=== PATIENT | male | born 1930 | race Caucasian/White ===

== ENCOUNTER 2017-07-01 18:12 | Observation (INO) ==
--- NOTE | 2017-07-01 18:17 | Emergency Department Note ---
Disposition Clinical Impression: Altered mental status Qualifiers: Altered mental status type: disorientation Qualified Code(s): R41.0 - Disorientation, unspecified Disposition: Admitted As Inpatient Condition: Fair General Adult HPI - General Chief complaint: ED General Medical Stated complaint: NH Placement Time Seen by Provider: 07/01/17 18:14 Source: patient, family Mode of arrival: private vehicle Limitations: age Nursing Notes Reviewed: Yes Vital Signs Reviewed: Yes - History of Present Illness HPI Narrative: The patient is brought in by his and 2 daughters. His states that she is fatigued from trying to take care of him and she is "at my wit's end" and "overwhelmed". She relates that she has been having difficulty controlling his blood sugars and that she will check his blood sugar 4 times a day and will run usually from about 40-230. A week ago he had episode where he had fallen out of bed and was sweaty and shaky and she was able to give oral glucose. When the squad got there he was doing better and he was not transported. They felt he has had a diabetic hypoglycemic seizure. Over the last 2-3 weeks his memory has been progressively worse. They state that he is unable to care for himself. He is not able to repair or the eat his food regularly, dress or shower for himself. He has had decreased oral intake with more trouble with his diabetic management. They note his memory is getting much worse or last 2- 3 weeks, although he has had difficulty for some time. He has had a couple falls without injury. He is on Plavix but no other anticoagulant. He has seen his family doctor for frequent urination and prostate trouble but is not having burning or flank pain. He has not been having chest pain, shortness of breath or cough. He has not had nausea or vomiting but has had intermittent diarrhea over the course of 2 months. He has been evaluated for that by his family doctor and ultimately placed on Imodium. He has not had diarrhea in 2-3 days. His daughters convened from [place] in [place] today to assist her mother and getting him placed into a prison. They did see the family doctor, Dr. Douglas Lancaster at 2:00 this afternoon, and were advised they should bring him to the emergency department for further evaluation. They went above evidenced by they waited for the second sister to arrive and have then come to the emergency department. Onset (ago): month(s) Associated symptoms: Reports: confusion, loss of appetite, weakness. Denies: chest pain, cough, diaphoresis, fever/chills, headaches, malaise, nausea/ vomiting, rash, seizure, shortness of breath, syncope - Related Data Home Medications Medication Instructions Recorded Confirmed B2/Vits A,C,E/Lut/Zeaxanth/Min 1 each PO DAILY 10/19/16 07/01/17 [Icaps Tablet] Calcium Carb/Vitamin D3/Vit K1 1 each PO DAILY 10/19/16 07/01/17 [Calcium + D Soft Chewable Tab] Clopidogrel [Plavix] 75 mg PO DAILY 10/19/16 07/01/17 Insulin Glargine [Lantus] 10 unit SQ HS 10/19/16 07/01/17 Insulin LISPRO [HumaLOG] 5 units SQ TIDWM 10/19/16 07/01/17 Levothyroxine [Synthroid] 125 mcg PO 0630 10/19/16 07/01/17 Losartan Potassium [Cozaar] 100 mg PO DAILY 10/19/16 07/01/17 Pravastatin Sodium 10 mg PO DAILY 10/19/16 07/01/17 Vitamin B Complex [B Complex] 1 each PO DAILY 10/19/16 07/01/17 Allergies Allergy/AdvReac Type Severity Reaction Status Date / Time No Known Allergies Allergy Verified 10/19/16 09:53 All systems ED: reviewed and negative except as stated. Past Medical History - Past Medical History Attestation: Yes The following information was validated with the patient. Source: patient, old records reviewed, obtained from family, nursing notes reviewed Medical history: Reports: diabetes, hyperlipidemia, hypertension, peripheral artery disease, renal disease, thyroid disease, other (Benign prostatic hypertrophy) Psychiatric history: Reports: no psych history - Social History Smoking Status: Never smoker Smokeless Tobacco Status: No Alcohol use: Reports: none Drug use: Reports: none Physical Exam - General Limitations: no limitations, age General appearance: alert, in no apparent distress - Head Head exam: atraumatic, normocephalic, normal inspection - Eye Eye exam: Present: normal appearance, PERRL, EOMI. Absent: scleral icterus, conjunctival injection - ENT ENT exam: normal exam, normal oropharynx, mucous membranes moist - Neck Neck exam: Present: normal inspection, full ROM, trachea midline. Absent: lymphadenopathy - Chest Chest inspection: Present: normal inspection, symmetric chest wall rise - Respiratory Respiratory exam: Present: normal lung sounds bilaterally. Absent: respiratory distress, wheezes, prolonged expiratory phase - Cardiovascular Cardiovascular exam: Present: regular rate, normal rhythm, normal heart sounds. Absent: tachycardia - Abdominal Exam Abdominal exam: Present: soft, Non-Tender, normal bowel sounds. Absent: tenderness, distention, guarding, rebound, rigidity, Diaz's sign, tenderness at McBurney's Point, pulsatile mass - Extremities Exam Extremities exam: Present: normal inspection, full ROM, normal capillary refill , pedal edema (Bilateral 1-2+ pretibial edema.). Absent: tenderness, calf tenderness - Expanded Lower Extremity Exam Neurovascular/Tendon exam: Present: normal capillary refill. Absent: motor deficit, sensory deficit, tendon deficit Gait: observed and normal (Assisted to her and from the bathroom by his , ambulatory) - Back Exam Back exam: Present: normal inspection, full ROM. Absent: tenderness, vertebral tenderness - Neurological Exam Neurological exam: Present: alert, normal gait. Absent: motor sensory deficit - Psychiatric Psychiatric exam: Present: normal mood, flat affect - Skin Skin exam: Present: warm, dry, intact, normal color. Absent: diaphoresis, pallor Course Course Narrative: 1839: Care was discussed at some length with the patient's and daughters. Given the falls think is reasonable to obtain a CT as well as EKG and lab panel to evaluate for metabolic, hematologic or cardiac problems for his weakness and memory changes. Advised we would have to wait on these results before we can talk to the hospitalist about potential observation. They understand that social insurance adviser will not be around until the morning. 1939: All labs, EKG and imaging him and discussed with the family and with Dr. Morales. Dr. Morales is agreeable with having the patient observed overnight for altered mental status with social service consult in the morning. Verbal orders have been obtained for this patient's observation. Vital Signs Temperature 98.0 F 07/01/17 18:14 Pulse Rate 73 07/01/17 18:14 Respiratory Rate 18 07/01/17 18:14 Blood Pressure 179/79 07/01/17 18:14 O2 Sat by Pulse Oximetry 99 07/01/17 18:14 Temperature 98.0 F 07/01/17 18:14 Pulse Rate 73 07/01/17 18:14 Respiratory Rate 18 07/01/17 18:14 Blood Pressure 179/79 07/01/17 18:14 O2 Sat by Pulse Oximetry 99 07/01/17 18:14 Oxygen Delivery Oxygen Delivery Room Air Medical Decision Making - Medical Records Medical records reviewed: Yes I reviewed the patient's medical records. - Lab Data Lab results reviewed: Yes I reviewed the patient's lab results. Result diagrams: 07/01/17 18:53 07/01/17 18:53 Lab Results 07/01/17 07/01/17 07/01/17 Range/Units 18:35 18:53 18:53 WBC 3.4 L (4.3-11.1) K/mcL RBC 3.14 L (4.19-5.50) M/mcL Hgb 9.5 L (12.9-16.9) g/dL Hct 27.4 L (37.5-50.1) % MCV 87.3 (83.0-100.0) fL MCH 30.3 (28.0-33.3) pg MCHC 34.7 (31.6-35.5) g/dL RDW 14.1 (11.5-14.5) % Plt Count 254 (140-400) K/mcL MPV 11.1 (9.4-12.4) fL Immature Gran % 0.3 (0-4) % Seg Neutrophils % 52.6 % Lymphocytes % 34.8 % Monocytes % 9.9 % Eosinophils % 1.5 % Basophils % 0.9 % Neutrophils # 1.8 (1.6-8.9) K/mcL Lymphocytes # 1.2 (0.6-4.6) K/mcL Monocytes # 0.3 (0.0-1.3) K/mcL Eosinophils # 0.1 (0.0-0.6) K/mcL Basophils # 0.0 (0.0-0.2) K/mcL Sodium 135 L (136-145) mEq/L Potassium 4.4 (3.5-4.5) mEq/L Chloride 104 (98-109) mEq/L Carbon Dioxide 24 (19-29) mEq/L BUN 26 (8-26) mg/dL Creatinine 1.40 H (0.72-1.25) mg/dL Est GFR ( Amer) 58 L (> 60) Est GFR (Non-Af Amer) 48 L (> 60) BUN/Creatinine Ratio 19 (6-26) Glucose 226 H (70-99) mg/dL Calculated Osmolality 292 (280-300) Calcium 8.7 (8.6-10.8) mg/dL Total Bilirubin 0.4 (0.2-1.2) mg/dL Direct Bilirubin 0.2 (0.0-0.5) mg/dL Indirect Bilirubin 0.2 (0.0-1.2) mg/dL AST 17 (5-34) Units/L ALT 16 (0-55) Units/L Alkaline Phosphatase 105 (38-126) Units/L Troponin I (0-0.03) ng/mL Serum Total Protein 6.1 (6.0-8.3) g/dL Albumin 3.1 L (3.5-5.0) g/dL Globulin 3.0 (2.4-3.5) g/dL Albumin/Globulin Ratio 1.0 L (1.1-2.2) Urine Color Yellow (Yellow) Urine Clarity Clear (Clear) Urine pH 5.5 (5.0-8.0) pH Units Ur Specific [place] 1.015 (1.010-1.025) Urine Protein 100 H (Neg-Trace) mg/dL Urine Glucose (UA) Normal (Normal) mg/dL Urine Ketones Negative (Negative) mg/dL Urine Blood Negative (Negative) Urine Nitrite Negative (Negative) Urine Bilirubin Negative (Negative) Urine Urobilinogen Normal (Normal) mg/dL Ur Leukocyte Esterase Negative (Negative) Urine Bacteria Few (None-Few) per hpf Hyaline Casts Few (None-Few) per lpf Urine Mucus Few (Few) Ur Culture Indicated? NO (NO) 07/01/17 Range/Units 18:53 WBC (4.3-11.1) K/mcL RBC (4.19-5.50) M/mcL Hgb (12.9-16.9) g/dL Hct (37.5-50.1) % MCV (83.0-100.0) fL MCH (28.0-33.3) pg MCHC (31.6-35.5) g/dL RDW (11.5-14.5) % Plt Count (140-400) K/mcL MPV (9.4-12.4) fL Immature Gran % (0-4) % Seg Neutrophils % % Lymphocytes % % Monocytes % % Eosinophils % % Basophils % % Neutrophils # (1.6-8.9) K/mcL Lymphocytes # (0.6-4.6) K/mcL Monocytes # (0.0-1.3) K/mcL Eosinophils # (0.0-0.6) K/mcL Basophils # (0.0-0.2) K/mcL Sodium (136-145) mEq/L Potassium (3.5-4.5) mEq/L Chloride (98-109) mEq/L Carbon Dioxide (19-29) mEq/L BUN (8-26) mg/dL Creatinine (0.72-1.25) mg/dL Est GFR ( Amer) (> 60) Est GFR (Non-Af Amer) (> 60) BUN/Creatinine Ratio (6-26) Glucose (70-99) mg/dL Calculated Osmolality (280-300) Calcium (8.6-10.8) mg/dL Total Bilirubin (0.2-1.2) mg/dL Direct Bilirubin (0.0-0.5) mg/dL Indirect Bilirubin (0.0-1.2) mg/dL AST (5-34) Units/L ALT (0-55) Units/L Alkaline Phosphatase (38-126) Units/L Troponin I 0.00 (0-0.03) ng/mL Serum Total Protein (6.0-8.3) g/dL Albumin (3.5-5.0) g/dL Globulin (2.4-3.5) g/dL Albumin/Globulin Ratio (1.1-2.2) Urine Color (Yellow) Urine Clarity (Clear) Urine pH (5.0-8.0) pH Units Ur Specific [place] (1.010-1.025) Urine Protein (Neg-Trace) mg/dL Urine Glucose (UA) (Normal) mg/dL Urine Ketones (Negative) mg/dL Urine Blood (Negative) Urine Nitrite (Negative) Urine Bilirubin (Negative) Urine Urobilinogen (Normal) mg/dL Ur Leukocyte Esterase (Negative) Urine Bacteria (None-Few) per hpf Hyaline Casts (None-Few) per lpf Urine Mucus (Few) Ur Culture Indicated? (NO) - Radiology Data Radiology results reviewed: Yes I reviewed the patient's radiology results. Single view chest x-ray is performed. This does not demonstrate evidence for infiltrate, effusion, pneumothorax, foreign body or heart failure. Patient has some chronic appearing scarring in the lungs. The cardiac silhouette is mildly enlarged. I do not see abnormality to the osseous structures of the chest. This is on my interpretation. CT head is performed. This is reviewed on bone and soft tissue windows. There is no evidence for acute intracranial bleed, shift, mass or edema. Patient has age-appropriate cerebral atrophy. Mastoids and sinuses appear normal. There is no fracture evident. This is on my interpretation. Impressions Chest X-Ray 07/01/17 18:29 IMPRESSION: Mild blunting of the right costophrenic angle likely by trace pleural fluid. Lungs are otherwise clear. Borderline heart size. D/ / Ming Ramirez MD / Ming Ramirez MD Interpreting Provider: Ming Ramirez MD Head CT 07/01/17 18:44 IMPRESSION: No acute intracranial abnormality. Age-appropriate generalized atrophy. Mild chronic small vessel ischemic white matter disease. D/ / Ming Ramirez MD / Ming Ramirez MD Interpreting Provider: Ming Ramirez MD - EKG Data EKG #1 EKG attestation: Yes I reviewed and interpreted this EKG. EKG shows normal: sinus rhythm, intervals, QRS complexes, ST-T waves Rate: bradycardia (58) [place]/QRS: left axis deviation Interpretation: no acute changes, nonspecific ST-T wave changes
[2017-07-01 18:42] LABS: Bilirubin,Urine Negative (Negative); Blood,Urine Negative (Negative); Clarity,Urine Clear (Clear); Color,Urine Yellow (Yellow); Glucose,Urine (UA) Normal (Normal); Ketones,Urine Negative (Negative); Leukocyte Esterase,Urine Negative (Negative); Nitrite,Urine Negative (Negative); PH,Urine 5.5 pH Units (5.0-8.0); Protein,Urine 100 mg/dL (Neg-Trace); Specific Gravity,Urine 1.015 (1.010-1.025); Urobilinogen,Urine Normal (Normal)
[2017-07-01 18:46] LABS: Bacteria,Urine Few per hpf (None-Few); Hyaline Casts,Urine Few per lpf (None-Few); Mucus,Urine Few (Few)
[2017-07-01 18:59] LABS: Basophils % 0.9 %; Eosinophils # 0.1 K/mcL (0.0-0.6); Eosinophils % 1.5 %; Hematocrit 27.4 % (37.5-50.1); Hemoglobin 9.5 g/dL (12.9-16.9); Immature Granulocytes % 0.3 % (0-4); Lymphocytes # 1.2 K/mcL (0.6-4.6); Lymphocytes % 34.8 %; Mean Corpuscular HGB Conc 34.7 g/dL (31.6-35.5); Mean Corpuscular Hemoglobin 30.3 pg (28.0-33.3); Mean Corpuscular Volume 87.3 fL (83.0-100.0); Mean Platelet Volume 11.1 fL (9.4-12.4); Monocytes # 0.3 K/mcL (0.0-1.3); Monocytes % 9.9 %; Neutrophils # 1.8 K/mcL (1.6-8.9); Platelet Count 254 K/mcL (140-400); Red Blood Count 3.14 M/mcL (4.19-5.50); Red Cell Distribution Width 14.1 % (11.5-14.5); Segmented Neutrophils % 52.6 %
[2017-07-01 19:17] LABS: Albumin 3.1 g/dL (3.5-5.0); Bilirubin,Direct 0.2 mg/dL (0.0-0.5); Bilirubin,Indirect 0.2 mg/dL (0.0-1.2); Bilirubin,Total 0.4 mg/dL (0.2-1.2); Calcium 8.7 mg/dL (8.6-10.8); Potassium 4.4 mEq/L (3.5-4.5); Total Protein 6.1 g/dL (6.0-8.3)
[2017-07-01] MEDS ORDERED: Dextrose Gel 15 GM PO PRN ×2 (20:55)
[2017-07-01] MEDS ORDERED: Ondansetron 4 MG/2 ML VIAL IVP PRN (20:55)
[2017-07-01] MEDS ORDERED: Naloxone 0.4 MG/ML INJ IVP PRN (20:55)
[2017-07-01] MEDS ORDERED: *HR* Dextrose 50 % in Water (Syg) 50 ML SYRINGE IVP PRN (20:55)
[2017-07-01] MEDS ORDERED: D5% in Water 1,000 ML IVC PRN (20:55)
[2017-07-01] MEDS ORDERED: MOM Conc 10 ML UD.LIQ PO PRN (20:55)
[2017-07-01] MEDS ORDERED: NON-FORMULARY MEDICATION 1 EACH EACH (Insulin Glargine [Lantus] 10 UNIT) SQ SCH (21:00)
[2017-07-01] MEDS ORDERED: Insulin DETEMIR 100 UNIT/ML per UNIT SQ ONE (21:45)
[2017-07-02] MEDS: Insulin LISPRO 300 UNITS/3 ML VIAL SQ SCH ×4 (08:25→12:42)
[2017-07-02 10:36] VITALS: BP 170/73
--- NOTE | 2017-07-02 12:11 | Internal Med History&Physical ---
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 He is appropriate [facility]. I will order B12 level for additional evaluation. (2) CKD (chronic kidney disease) stage 3, GFR 30-59 ml/min Current visit: Yes Status: Chronic Will hold Cozaar and monitor renal indices periodically. (3) Anemia Current visit: Yes Status: Acute Will order anemia testing. Suspect due at least in part to chronic kidney disease. Qualifiers: Anemia type: unspecified type Qualified Code(s): D64.9 - Anemia, unspecified (4) Hypothyroidism Current visit: Yes Status: Chronic We will check TSH. Continue Synthroid at present dose for now. Qualifiers: Hypothyroidism type: unspecified Qualified Code(s): E03.9 - Hypothyroidism , unspecified (5) Hyperlipidemia Current visit: Yes Status: Acute Observe Qualifiers: Hyperlipidemia type: unspecified Qualified Code(s): E78.5 - Hyperlipidemia , unspecified (6) BPH (benign prostatic hyperplasia) Current visit: Yes Status: Chronic Discontinue Flomax and changed to Cardura to assist in blood pressure control. Will add Proscar since he has multiple episodes of nocturia. Qualifiers: Lower urinary tract symptom presence: symptoms present Lower urinary tract symptom detail: urinary frequency Qualified Code(s): N40.1 - Benign prostatic hyperplasia with lower urinary tract symptoms; R35.0 - Frequency of micturition ; R35.0 - Frequency of micturition (7) DM type 2 (diabetes mellitus, type 2) Current visit: Yes Status: Chronic We will hold insulin since he is having hypoglycemia frequently at home. We will do Accu-Cheks with SSI. Qualifiers: Diabetes mellitus complication status: with kidney complications Diabetes mellitus complication detail: with chronic kidney disease Diabetes mellitus plate glass polisher insulin use: with plate glass polisher use Chronic kidney disease stage: stage 3 (moderate) Qualified Code(s): E11.22 - Type 2 diabetes mellitus with diabetic chronic kidney disease; N18.3 - Chronic kidney disease, stage 3 ( moderate); N18.3 - Chronic kidney disease, stage 3 (moderate); Z79.4 - shelter (current) use of insulin; Z79.4 - piece dyer (current) use of insulin; Z79.4 - piece dyer (current) use of insulin; Z79.4 - piece dyer (current) use of insulin (8) Hypertension Current visit: Yes Status: Chronic We will withhold Cozaar and see if azotemia improves. We will give Cardura for blood pressure and BPH symptoms Qualifiers: Hypertension type: essential hypertension Qualified Code(s): I10 - Essential (primary) hypertension Internal Medicine - H&P: HPI Chief complaint: Confusion and weakness Admitted From: Home Plans for Post Hospital Care: Transfer Supervisory Lifeguard Care History of present illness: Mr. Rogel is a 87 year old male who came to emergency room after he became more confused and progressively weaker over the past 1-2 weeks. His states she is unable to care for him at home. He was evaluated in emergency room and admitted to observation bed until further disposition could be arranged. He has never received a formal diagnosis of dementia but family reports his memory has been decreasing for approximately 2 years. He had a seizure approximately one week ago felt to be due to hypoglycemia. He had not had previous seizures. He has not had large distribution strokes or other neurologic problems. Past Med Surg Social Fam HX - Past Medical History Medical history: diabetes, hyperlipidemia, hypertension, peripheral artery disease, renal disease, thyroid disease, other Psychiatric history: no psych history - Social History Smoking Status: Never smoker Smokeless Tobacco Status: No Alcohol use: none Drug use: none Internal Medicine - H&P: Meds B2/Vits A,C,E/Lut/Zeaxanth/Min [Icaps Tablet] 1 each PO DAILY 10/19/16 [History] Calcium Carb/Vitamin D3/Vit K1 [Calcium + D Soft Chewable Tab] 1 each PO DAILY 10/19/16 [History] Clopidogrel [Plavix] 75 mg PO DAILY 10/19/16 [History] Insulin Glargine [Lantus] 10 unit SQ HS 10/19/16 [History] Insulin LISPRO [HumaLOG] 5 units SQ TIDWM 10/19/16 [History] Levothyroxine [Synthroid] 125 mcg PO 0630 10/19/16 [History] Losartan Potassium [Cozaar] 100 mg PO DAILY 10/19/16 [History] Pravastatin Sodium 10 mg PO DAILY 10/19/16 [History] Vitamin B Complex [B Complex] 1 each PO DAILY 10/19/16 [History] 3 Allergy/AdvReac Type Severity Reaction Status Date / Time No Known Allergies Allergy Verified 07/02/17 01:55 All Systems PM: A 10-system review of systems was performed and is negative for pertinent findings except as documented above in the HPI. Review of systems: Gen.: His weight has been stable the past few months Cardiovascular: He has history of hypertension. He has known peripheral artery disease and has had iliac stents placed bilaterally as well as a stent in his right subclavian artery. 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 He has not had DVTs CT heart failure or pulmonary embolism. Respiratory: He is a lifelong nonsmoker and has no known chronic lung disease GI: Has no known disorder of his liver gallbladder or exocrine pancreas : He has BPH with history of TUR. He has frequent nocturia. He has chronic kidney disease stage III. He does not follow with a plc programmer. Neurologic: As per history of present illness Endocrine: He was diagnosed with DM 2 in 1977. Hemoglobin A1c was 6.7% on 05/24. He has hypothyroidism and history of hyperlipidemia Hematology/oncology: He has anemia but no known internal malignancies or blood disorders Psychiatric: No history of anxiety depression or other mental health issues Musculoskeletal: He has minimal DJD. There is no history of gout or other bone joint or muscle disorders. - Constitutional Vitals: Temp Pulse Resp BP Pulse Ox 97.3 F L 61 16 170/73 95 07/02/17 10:33 07/02/17 10:33 07/02/17 10:33 07/02/17 10:33 07/02/17 10:33 Exam: Gen.: He is a well-developed well-nourished male sitting in a chair who appears in no acute distress at present time. HEENT: Head is atraumatic and normal cephalic. Eyes: EOMI. There is no scleral icterus. Mouth: Mucosa is moist. Neck: Supple and nontender. There is no thyromegaly or adenopathy noted. Heart: Irregular. I could not tell if it is regularly or irregularly irregular. No murmurs or gallops are heard. Lungs: No wheezes or crackles are heard. Abdomen: Soft and nontender. No masses or guarding are noted. Exam is limited because he is in the seated position. Extremities: He has slight dependent erythema of his lower legs. Dorsalis pedis and posterior tibial pulses are trace palpable bilaterally. There is no cyanosis or clubbing noted. Neurologic: Mental status: He is awake and able to answer a few questions but does not seem to be an insightful historian. Cranial nerves: Smile is symmetric. Forehead wrinkles bilaterally. Tongue protrudes midline. EOMI. Motor: There is no pronator drift. Cirelli: Finger to nose is intact bilaterally. Skin: Warm and dry Internal Med - H&P Results - Labs CBC & Chem 7: 07/01/17 18:53 07/01/17 18:53 - VTE Documentation of Mechanical Device: Graduated compression elastic hosiery
--- NOTE | 2017-07-02 14:56 | Discharge Summary ---
Date of Encounter: 07/02/17 Time of Encounter: 11:30 - Discharge Diagnosis (1) Confusion Priority: Primary Status: Acute (2) CKD (chronic kidney disease) stage 3, GFR 30-59 ml/min Priority: Secondary Status: Chronic (3) Anemia Priority: Secondary Status: Chronic Qualifiers: Anemia type: unspecified type Qualified Code(s): D64.9 - Anemia, unspecified (4) Hypothyroidism Priority: Secondary Status: Chronic Qualifiers: Hypothyroidism type: unspecified Qualified Code(s): E03.9 - Hypothyroidism , unspecified (5) Hyperlipidemia Priority: Secondary Status: Chronic Qualifiers: Hyperlipidemia type: unspecified Qualified Code(s): E78.5 - Hyperlipidemia , unspecified (6) BPH (benign prostatic hyperplasia) Priority: Secondary Status: Chronic Qualifiers: Lower urinary tract symptom presence: symptoms present Lower urinary tract symptom detail: urinary frequency Qualified Code(s): N40.1 - Benign prostatic hyperplasia with lower urinary tract symptoms; R35.0 - Frequency of micturition ; R35.0 - Frequency of micturition (7) DM type 2 (diabetes mellitus, type 2) Priority: Secondary Status: Chronic Qualifiers: Diabetes mellitus complication status: with kidney complications Diabetes mellitus complication detail: with chronic kidney disease Diabetes mellitus retirement insulin use: with emt intermediate use Chronic kidney disease stage: stage 3 (moderate) Qualified Code(s): E11.22 - Type 2 diabetes mellitus with diabetic chronic kidney disease; N18.3 - Chronic kidney disease, stage 3 ( moderate); N18.3 - Chronic kidney disease, stage 3 (moderate); Z79.4 - residential (current) use of insulin; Z79.4 - residential (current) use of insulin; Z79.4 - terminal manager (current) use of insulin; Z79.4 - terminal manager (current) use of insulin (8) Hypertension Priority: Secondary Status: Chronic Qualifiers: Hypertension type: essential hypertension Qualified Code(s): I10 - Essential (primary) hypertension - Discharge Medications Home Medications: B2/Vits A,C,E/Lut/Zeaxanth/Min [Icaps Tablet] 1 each PO DAILY 10/19/16 [History] Calcium Carb/Vitamin D3/Vit K1 [Calcium + D Soft Chewable Tab] 1 each PO DAILY 10/19/16 [History] Clopidogrel [Plavix] 75 mg PO DAILY 10/19/16 [History] Levothyroxine [Synthroid] 125 mcg PO 0630 10/19/16 [History] Losartan Potassium [Cozaar] 100 mg PO DAILY 10/19/16 [History] Pravastatin Sodium 10 mg PO DAILY 10/19/16 [History] Vitamin B Complex [B Complex] 1 each PO DAILY 10/19/16 [History] Doxazosin [Cardura] 2 mg PO HS tablet 07/02/17 [Rx] Finasteride [Proscar] 5 mg PO DAILY tablet 07/02/17 [Rx] Allergies/Adverse Reactions: 3 Allergy/AdvReac Type Severity Reaction Status Date / Time No Known Allergies Allergy Verified 07/02/17 01:55 Date of admission: 07/01/17 19:47 Primary care physician: Douglas Lancaster MD Consults: 07/02/17 01:24 Consult to Nutrition [CONS] Routine Comment: Consulting Provider: NUTRITION Reason for Dietary Consult: MST Score 07/02/17 10:35 Consult to Occupational Therapy [CONS] Routine Comment: Evaluate, develop and implement POC Reason for Consult: weakness Consult to Physical Therapy [CONS] Routine Comment: Evaluate, develop and implement POC Reason for Consult: weakness - Patient Status Disposition: Transfer SNF Condition: Fair Overall status at discharge: patient is progressing back to baseline - Discharge Instructions - Diet and Activity Diet: advance to your usual diet Hospital course: Mr. Rogel is a 87 year old male who came to emergency room after he became more confused and progressively weaker over the past 1-2 weeks. His states she is unable to care for him at home. He was evaluated in emergency room and admitted to observation bed until further disposition could be arranged. Initial orders were written by the emergency room physician. I saw him on July 02 and performed a history physical and discharge. Physical therapy and occupational therapy evaluations were done. Anemia testing was ordered to further evaluate his anemia. These results are pending at time of discharge. TSH was ordered with results pending at time of discharge. Cozaar will be held because of his azotemia with repeat labs done in a few days. Lantus and scheduled NovoLog will be held at discharge with Accu-Cheks and SSI done Flomax was discontinued and he was placed on Cardura to assist in blood pressure control. I added Proscar. His urination pattern will be monitored at the retirement. After meeting with his family and rn social services was agreed the best plan would be to discharge him to the [facility] for probable long-term care. I will follow with him there. - Time Spent with Patient Total time spent providing and/or coordinating discharge services: - Constitutional Vitals: Temp Pulse Resp BP Pulse Ox 97.3 F L 61 16 170/73 95 07/02/17 10:33 07/02/17 11:46 07/02/17 11:46 07/02/17 11:46 07/02/17 11:46 - VTE Documentation of Mechanical Device: Graduated compression elastic hosiery
--- NOTE | 2017-07-02 17:24 | Electrocardiograph Report ---
[address] [address] Test Date: 2017-07-01 Pat Name: Gautam Rogel Department: 9201 Room: [facility] Gender: M Patient Experience Coordinator: [id number] : 1930 Requested By: Luis Fletcher Order Number: [id number] Reading MD: Cherelle Rae Measurements Intervals [place] Rate: 58 P: 77 FL: 189 QRS: -22 QRSD: 98 T: 34 QT: 400 QTc: 396 Interpretive Statements SINUS BRADYCARDIA WITH OCCASIONAL SUPRAVENTRICULAR PREMATURE COMPLEXES BORDERLINE LEFT AXIS DEVIATION Electronically Signed On 07-02-2017 17:22:32 EDT by Cherelle Rae
[2017-07-02] MEDS ORDERED: Insulin DETEMIR 100 UNIT/ML X5UNITS SQ SCH (21:00)
[2017-07-03] MEDS ORDERED: Finasteride 5 MG TABLET PO SCH (09:00)
== END 2017-07-02 15:30 ==
LOC: INPPIK 18:12 → EMEROOPIK 18:12 → INPPIK 20:00
PROVIDERS: ADMIT Internal Medicine; ATTEND Internal Medicine